=== PATIENT | male | born 1980 | race Caucasian/White ===

== ENCOUNTER 2020-01-03 20:29 | Emergency (ER) | payer OTHER ==
[2020-01-03 20:34] VITALS: BP 107/67; PULSE 73; TEMP 97.8; BMI 27.3
[2020-01-03] MEDS ORDERED: FLUORESCEIN NA 1 EA STRIP OD ONE (20:36)
[2020-01-03] MEDS ORDERED: TETRACAINE 0.5% HCL 0.6ML DROPPER.BOTTLE OD ONE (20:36)
[2020-01-03] MEDS ORDERED: FLUORESCEIN NA 1 EA STRIP ONE (20:37)
[2020-01-03] MEDS ORDERED: TETRACAINE 0.5% OPHTH SOLN 2 ML BOTTLE ONE ×2 (20:37)
--- NOTE | 2020-01-03 20:50 | PDOC ---
History of Present Illness - General Chief Complaint: Eye Problem Stated Complaint: INJURY Time Seen by Provider: 01/03/20 20:35 - History of Present Illness Initial Comments: 01/03/20 20:46 39-year-old male current on tetanus presents for evaluation of right eye irritation. Patient was working with a hammer drill drilling through a wall when he feels a foreign body may have entered his right eye. He was not wearing safety glasses. He has no comorbidities. Past History - Medical History Allergies/Adverse Reactions: Allergies Allergy/AdvReac Type Severity Reaction Status Date / Time No Known Allergies Allergy Verified 05/25/11 13:29 Home Medications: Ambulatory Orders Acetaminophen W/ Codeine #3 [Tylenol # 3] 1 combo PO Q4H PRN #18 tablet 05/25/11 Tobramycin 0.3% Ophth Soln [Tobrex Ophthalmic Solution -] 1 drop OD Q4HWA #1 bottle 01/03/20 - Psycho-Social/Smoking History Smoking Status: Yes Smoking History: Current some day smoker Number of Cigarettes Smoked Daily: 3 Information on smoking cessation initiated: Yes - Substance Abuse Hx (Audit-C & DAST Scrn) How often the patient has a drink containing alcohol: Never Score: In Men: 4 or > Positive; In Women: 3 or > Positive: 0 Screen Result (Pos requires Nsg. Audit-10AR): Negative Review of Systems - Review of Systems HEENTM: Yes: Eye Pain, Blurred Vision, Tearing, Recent change in vision *Physical Exam - Vital Signs Last Vital Signs Temp Pulse Resp BP Pulse Ox 97.8 F 73 20 107/67 100 01/03/20 20:30 01/03/20 20:30 01/03/20 20:30 01/03/20 20:30 01/03/20 20:30 - Physical Exam Tetracaine was instilled in the right eye and fluorescein was used for staining. No foreign body was identified the lights were shut bluelight was used to inspect and examined the eye. No foreign body was identified. There appears to be a large corneal abrasion at the center of the right eye. ED Treatment Course - Medications Given in the ED: ED Medications Discontinued Medications Generic Name Dose Route Start Last Admin Trade Name Freq PRN Reason Stop Dose Admin Fluorescein Sodium 1 ea 01/03/20 20:36 01/03/20 20:39 Fluorets - OD 01/03/20 20:37 1 ea ONCE ONE Administration Tetracaine HCl 1 drop 01/03/20 20:36 01/03/20 20:39 Tetravisc 0.5% Eye Drops - OD 01/03/20 20:37 1 drop ONCE ONE Administration Medical Decision Making - Medical Decision Making 01/03/20 20:47 1 L bag of saline was used to flush the eye this was tolerated well. Tobramycin was prescribed ophthalmology follow-up was stressed tomorrow Discharge - Discharge Information Problems reviewed: Yes Clinical Impression/Diagnosis: Injury of conjunctiva and corneal abrasion of right eye w/o FB Condition: Stable Disposition: HOME - Admission No - Follow up/Referral Referrals: Miguel Dooley MD [Staff Physician] - - Patient Discharge Instructions Additional Instructions: Please use the antibiotic drops as directed and return to the emergency room should symptoms worsen. Without fail follow-up with ophthalmology tomorrow for further evaluation and treatment options - Post Discharge Activity Work/Back to School Note: Back to Work
== END 2020-01-03 21:02 | disposition home or self-care (01) ==
LOC: JERFT 20:29
DX: S05.01XA Injury of conjunctiva and corneal abrasion without foreign body, right eye, initial encounter (principal)
CPT/HCPCS: 99284-25

== ENCOUNTER 2020-02-18 14:02 | Emergency (ER) | payer OTHER ==
[2020-02-18 14:14] VITALS: BP 114/83; PULSE 71; TEMP 98.1; BMI 26.4
--- OUTSIDE RECORDS SUMMARY | 2020-02-18 14:16 | XMS ---
:1980 Author Organization [facility] Support Name Relationship Address Phone [employer] [place] [address] PRADORASHARD AVITIA MOTHER [address] [place] [address] PRADO NILVA Mother [address] [place] [place] [address] Re-disclosure Warning The records that you are about to access may contain information from federally- assisted alcohol or drug abuse programs. If such information is present, then the following federally mandated warning applies: This information has been disclosed to you from records protected by federal confidentiality rules (42 CFR part 2). The federal rules prohibit you from making any further disclosure of this information unless further disclosure is expressly permitted by the written consent of the person to whom it pertains or as otherwise permitted by 42 CFR part 2. A general authorization for the release of medical or other information is NOT sufficient for this purpose. The Federal rules restrict any use of the information to criminally investigate or prosecute any alcohol or drug abuse patient.The records that you are about to access may contain highly sensitive health information, the redisclosure of which is protected by Article 27-F of the [place] Public Health law. If you continue you may haveaccess to information: Regarding HIV / AIDS; Provided by facilities licensed or operated by the [facility] [facility] Office of Mental Health; or Provided by the [facility] Office for People With Developmental Disabilities. If such information is present, then the following [facility] [facility] mandated warning applies: This information has been disclosed to you from confidential records which are protected by state law. State law prohibits you from making any further disclosure of this information without the specific written consent of the person to whom it pertains, or as otherwise permitted by law. Any unauthorized further disclosure in violation of state law may result in a fine or senior care sentence or both. A general authorization for the release of medical or other information is NOT sufficient authorization for further disclosure. Insurance Providers Payer name Policy type Policy ID Covered Covered green party's Policy P david / Coverage green party ID relationship to [place] [facility] ormation type [facility] [id number] SP [id number] NON CAP GALDINO 8bit [id number] SP [id number] NON CAP MEDICAID [id number] SP [id number] [id number] S [id number] Medicaid Dental [id number] S [id number] [employer] [facility] [place] [employer] [id number] S [id number] Medicaid [id number] W[employer] Claims (DO NOT USE) [id number] S [id number] [facility] Auth PCP Not MVNHC/YHC/GHC
[2020-02-18] MEDS ORDERED: ERYTHROMYCIN 0.5% OPHTHALMIC OINTMENT 3.5 GM TUBE OD ONE (14:41)
[2020-02-18] MEDS ORDERED: TETRACAINE 0.5% HCL 0.6ML DROPPER.BOTTLE OD ONE (14:41)
[2020-02-18] MEDS ORDERED: FLUORESCEIN NA 1 EA STRIP OD ONE (14:41)
--- NOTE | 2020-02-18 14:49 | PDOC ---
History of Present Illness - General Chief Complaint: Eye Problem Stated Complaint: FB IN EYE Time Seen by Provider: 02/18/20 14:16 History Source: Patient Exam Limitations: No Limitations - History of Present Illness Initial Comments: 02/18/20 14:49 HISTORY OF PRESENT ILLNESS: 39-year-old male presents emergency department for evaluation of foreign body sensation to his right eye over the past 5 days. Patient denies any blurry vision or tearing. He denies photophobia. Patient reports he has an appointment with an social services coordinator in 2 days. No recent travel or sick contacts. PAST MEDICAL HISTORY: Denies past medical history SURGICAL HISTORY: Denies ALLERGIES: No known drug allergies REVIEW OF SYSTEMS General/Constitutional: Denies fever or chills. Denies weakness, weight change. HEENT: See HPI Cardiovascular: Denies chest pain or shortness of breath. Respiratory: Denies cough, wheezing, or hemoptysis. Gastrointestinal: Denies nausea, vomiting, diarrhea or constipation. Denies rectal bleeding. Genitourinary: Denies dysuria, frequency, or change in urination. Musculoskeletal: Denies joint or muscle swelling or pain. Denies neck or back pain. Skin and breasts: Denies rash or easy bruising. Neurologic: Denies headache, vertigo, loss of consciousness, or loss of sensation. Psychiatric: Denies depression or anxiety. Endocrine: Denies increased thirst. Denies abnormal weight change. Hematologic/Lymphatic: Denies anemia, easy bleeding, or history of blood clots. Allergic/Immunologic: Denies hives or skin allergy. Denies latex allergy. PHYSICAL EXAM General Appearance: Well-appearing, appropriately dressed. No apparent distress, no intoxication. HEENT: EOMI, PERRLA, normal ENT inspection, normal voice, TMs normal, pharynx normal. No conjunctival pallor. No photophobia, scleral icterus. 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 Fully oriented, alert. Appropriate mood/affect. Motor strength 5/5. No appreciable EOM palsy, facial droop or sensory deficit. Past History - Medical History Allergies/Adverse Reactions: Allergies Allergy/AdvReac Type Severity Reaction Status Date / Time No Known Allergies Allergy Verified 02/18/20 14:13 Home Medications: Ambulatory Orders Acetaminophen W/ Codeine #3 [Tylenol # 3] 1 combo PO Q4H PRN #18 tablet 05/25/11 Tobramycin 0.3% Ophth Soln [Tobrex Ophthalmic Solution -] 1 drop OD Q4HWA #1 bottle 01/03/20 Erythromycin 0.5% Eye Ointment [Erythromycin 0.5% Eye Ointment -] 1 applic OD QID #1 tube 02/18/20 - Psycho-Social/Smoking History Smoking Status: Yes Smoking History: Never smoked Number of Cigarettes Smoked Daily: 3 - Substance Abuse Hx (Audit-C & DAST Scrn) How often the patient has a drink containing alcohol: Never Score: In Men: 4 or > Positive; In Women: 3 or > Positive: 0 Screen Result (Pos requires Nsg. Audit-10AR): Negative In the last yr the pt used illegal drug/Rx for NonMed reason: No Score: Yes response is considered Positive: 0 Screen Result (Positive result requires Nsg. DAST-10): Negative *Physical Exam - Vital Signs Last Vital Signs Temp Pulse Resp BP Pulse Ox 98.1 F 71 16 114/83 98 02/18/20 14:11 02/18/20 14:11 02/18/20 14:11 02/18/20 14:11 02/18/20 14:11 Medical Decision Making - Medical Decision Making 02/18/20 14:47 A/P: 39-year-old male for body sensation to right eye for the past 5 days. EYE EXAMINATION: Visual acuity: 20/20 in the left eye, 20/20 in the right eye, near, uncorrected The lid and lashes are normal. Extraocular movements are intact. The conjunctiva is clear without erythema, injection, or discharge The corneal surface is normal post tetracaine and fluorescein. Abrasion present to 3 o'clock position over the sclera. There is no foreign body. There is no abnormal fluorescein uptake. The pupils are equal, round and reactive to light. The fundus shows normal vessels and normal discs. Discharge home with ophthalmology follow-up and prescription for erythromycin I discussed the physical exam findings, ancillary test results and final diagnoses with the patient. I answered all of the patient's questions. The patient was satisfied with the care received and felt comfortable with the discharge plan and treatment plan. The patient will call their primary care physician within 24 hours to arrange follow-up and will return to the Emergency Department with any new, persistent or worsening symptoms. Portions of this note have been documented using voice recognition software. As a result, errors may occur in the vp corporate development process. Effort has been made to correct all grammatical and vp corporate development error, but some may have been missed which may produce sporadic inaccurate vp corporate development or nonsensical phrases. Discharge - Discharge Information Problems reviewed: Yes Clinical Impression/Diagnosis: Injury of conjunctiva and corneal abrasion of right eye w/o FB Qualifiers: Encounter type: initial encounter Qualified Code(s): S05.01XA - Injury of conjunctiva and corneal abrasion without foreign body, right eye, initial encounter Condition: Stable Disposition: HOME - Admission No - Additional Discharge Information Prescriptions: Erythromycin 0.5% Eye Ointment [Erythromycin 0.5% Eye Ointment -] 1 applic OD QID #1 tube - Follow up/Referral Referrals: Fracisco Hooper MD [Staff Physician] - Miguel Dooley MD [Staff Physician] - - Patient Discharge Instructions Additional Instructions: Rest, avoid rubbing eyes Wash hands, use eye drops as directed, wash hands after use Do not share eye ointment with other person Erthromycin ointment to affected eye 4 times a day for 5 days Avoid contact with others until redness and discharge is gone from eyes. Followup with ophthalmology or private physician as needed - Post Discharge Activity
== END 2020-02-18 15:36 | disposition home or self-care (01) ==
LOC: JERFT 14:02
DX: S05.01XA Injury of conjunctiva and corneal abrasion without foreign body, right eye, initial encounter (principal)
CPT/HCPCS: 99284-25

== ENCOUNTER 2022-05-22 19:43 | Emergency (ER) | payer OTHER ==
[2022-05-22 20:06] VITALS: BP 117/76; PULSE 57; RESP 18; TEMP 97.7; BMI 25.8
[2022-05-22] MEDS ORDERED: SODIUM CHLORIDE 0.9% 500 ML INFUS.BAG IV ONE (21:24)
[2022-05-22] MEDS ORDERED: PROCHLORPERAZINE INJECTION 10 MG/2 ML VIAL IVPB ONE (21:25)
[2022-05-22] MEDS ORDERED: PROCHLORPERAZINE INJECTION 10 MG/2 ML VIAL ONE (21:50)
== END 2022-05-22 23:24 | disposition home or self-care (01) ==
LOC: JER 19:43
PROC: 3E033GC Introduction of Other Therapeutic Substance into Peripheral Vein, Percutaneous Approach (ICD-10-PCS; principal; 2022-05-22)
DX: R51.9 Headache, unspecified (principal)
CPT/HCPCS: 99284-25